=== PATIENT | female | born 1935 | race Caucasian/White ===

== ENCOUNTER 2019-05-28 15:05 | Emergency (ER) | payer OTHER ==
[~2019-05-28] VITALS: Ht 147.3 cm; Wt 47.6 kg
[2019-05-28] MEDS ORDERED: COZAAR100 MG (15:19)
[2019-05-28] MEDS ORDERED: TOPROL XL100 M1 (15:20)
[2019-05-28] MEDS ORDERED: LIPITOR40 MG (15:20)
[2019-05-28] MEDS ORDERED: BAYER THERAPY325 MG (15:25)
[2019-05-28] MEDS ORDERED: DETROL LA4 MG (15:26)
== END 2019-05-28 18:21 | disposition home or self-care (01) ==
LOC: ER 15:05
DX: R55 Syncope and collapse (principal)